=== PATIENT | male | born 1935 | race Caucasian/White ===

== ENCOUNTER 2022-03-11 23:45 | Emergency (ER) | payer MEDICARE ==
[~2022-03-11] VITALS: Ht 175.3 cm; Wt 82.0 kg
[2022-03-12] MEDS ORDERED: ONDANSETRON HCL 4MG/2ML INJ IV STA (00:15)
[2022-03-12] MEDS ORDERED: MORPHINE SULFATE 4 MG/ML CPJ (NOT FOR IM USE) IV STA (00:15)
[2022-03-12 00:46] LABS: HEMATOCRIT. 39.9 % (42.0-52.0); HEMOGLOBIN. 13.6 g/dL (14.0-18.0); LYMPHOCYTES % 20.9 % (20.0-50.0); MEAN CORPUSCULAR HEMOGLOBIN 31.1 pg (28.0-32.0); MEAN CORPUSCULAR VOLUME 91.6 fL (80.0-94.0); MEAN PLATELET VOLUME 7.9 fl (7.4-10.4); MONOCYTES % 6.3 % (2.0-8.0); NEUTROPHILS % 69.8 % (40.0-76.0); PLATELET 229 x1000/uL (130-400); RED BLOOD CELL COUNT 4.36 mill/uL (4.7-6.1); RED CELL DISTRIBUTION WIDTH 15.6 % (11.6-14.6)
[2022-03-12 00:57] LABS: CHLORIDE 102 mEq/L (98-107)
[2022-03-12] MEDS ORDERED: HYDR-4001 MT (04:25)
[2022-03-12] MEDS ORDERED: IBUP-2029 MT (04:25)
[2022-03-12 04:55] VITALS: BP 148/71
== END 2022-03-12 04:58 | disposition home or self-care (01) ==
LOC: ER 23:49
DX: M54.12 Radiculopathy, cervical region (principal); I10 Essential (primary) hypertension
CPT/HCPCS: 36415; 71045; 72125; 73030; 80053; 85025; 93005; 96374; 96375; 99285; J2270; J2405